=== PATIENT | female | born 1960 | race Caucasian/White ===

== ENCOUNTER 2016-06-24 16:30 | Emergency (ER) | payer MEDICAID ==
[~2016-06-24] VITALS: Ht 167.6 cm; Wt 63.5 kg
[2016-06-24 17:24] LABS: BASOPHILS % (AUTO) 0.2 % (0.0-2.0); DIFF TOTAL % 100 %; EOSINOPHILS % (AUTO) 0.1 % (0.0-6.0); HEMATOCRIT 37 % (33-45); HEMOGLOBIN 12.6 g/dL (11.5-14.8); LYMPHOCYTES # (AUTO) 1.3 /CMM (0.8-4.8); LYMPHOCYTES % (AUTO) 13.4 % (20.0-44.0); MEAN CORPUSCULAR HEMOGLOBIN 30 PG (26.0-33.0); MEAN CORPUSCULAR HGB CONC 34 g/dl (31.0-36.0); MEAN CORPUSCULAR VOLUME 88 fL (82-100); MONOCYTES # (AUTO) 0.7 /CMM (0.1-1.30); MONOCYTES % (AUTO) 7.1 % (2.0-12.0); NEUTROPHILS # (AUTO) 7.4 /CMM (1.8-8.9); NEUTROPHILS % (AUTO) 79.2 % (43.0-81.0); PLATELET COUNT (AUTO) 284 /CMM (150-450); RED BLOOD CELL COUNT(AUTO) 4.24 MIL/uL (4.0-5.2); WHITE BLOOD COUNT (AUTO) 9.4 K/uL (4.3-11.0)
[2016-06-24] MEDS ORDERED: HALO10TA13 PO (17:34)
[2016-06-24] MEDS ORDERED: LAMO150T33 PO (17:34)
[2016-06-24] MEDS ORDERED: BENZ1TAB7 PO (17:34)
[2016-06-24] MEDS ORDERED: OLAN10TA3 PO (17:34)
[2016-06-24] MEDS ORDERED: DIVA500T2 PO (17:34)
[2016-06-24 17:36] LABS: INR 1.04 (0.87-1.13); PROTHROMBIN TIME 10.9 SECS (9.5-12.7)
[2016-06-24 17:37] LABS: ALANINE AMINOTRANSFERASE 12 U/L (12-78); ALBUMIN 3.2 g/dL (3.4-5.0); ANION GAP 13 (5-14); ASPARTATE AMINOTRANSFERASE 16 U/L (15-37); BILIRUBIN,TOTAL 0.1 mg/dL (0.2-1.0); CALCIUM, SERUM 8.7 mg/dL (8.5-10.1); CARBON DIOXIDE 26 mmol/L (21-32); CHLORIDE 107 mmol/L (98-107); CREATININE 0.8 mg/dL (0.6-1.3); GFR 74 mL/min (>60); GLUCOSE 114 mg/dL (74-106); SODIUM SERUM 142 mmol/L (136-145); TOTAL PROTEIN, SERUM 6.7 g/dL (6.4-8.2); UREA NITROGEN, BLOOD 19 mg/dL (7-18)
[2016-06-24 17:42] LABS: ACETAMINOPHEN 0 ug/ml (10-30); INDIRECT BILIRUBIN 0.1 mg/dL (0.0-1.1); SALICYLATE 1.3 mg/dL (2.8-20.0)
[2016-06-24 19:12] LABS: KETONES,URINE Trace (NEGATIVE); LEUKOCYTE ESTERASE ,URINE Small (NEGATIVE); PH,URINE 5.5 (5.0-8.0)
[2016-06-24 19:16] LABS: ADD UA MICROSCOPIC YES
[2016-06-24 19:17] LABS: CANNABINOID, URINE NEGATIVE (NEGATIVE); PHENCYCLIDINE SCREEN,URINE NEGATIVE (NEGATIVE)
[2016-06-24] MEDS ORDERED: OLANZAPINE 5 MG TABLET ONE (19:17)
[2016-06-24 19:29] LABS: ADD URINE CULTURE YES; WBC,URINE TOO NUMEROUS TO COUN /HPF (0-3)
[2016-06-24] MEDS ORDERED: OLANZAPINE 5 MG TABLET PO ONE (19:30)
[2016-06-24] MEDS ORDERED: HALOPERIDOL LACTATE INJ 5 MG/ML VIAL ONE (20:29)
[2016-06-24] MEDS ORDERED: HALOPERIDOL LACTATE INJ 5 MG/ML VIAL IM ONE (21:00)
[2016-06-24 21:22] VITALS: BP 132/87
== END 2016-06-24 21:22 | disposition home or self-care (01) ==
LOC: ER 16:31
DX: F29 Unspecified psychosis not due to a substance or known physiological condition (principal); Z88.0 Allergy status to penicillin; Z88.1 Allergy status to other antibiotic agents; Z88.8 Allergy status to other drugs, medicaments and biological substances; R79.1 Abnormal coagulation profile; R82.79 Other abnormal findings on microbiological examination of urine
CPT/HCPCS: 36415; 80048-TC; 80076-TC; 80305; 81000-TC; 85025-TC; 85730-TC; 87086-TC; A4606; G6038-TC; G6039-TC; G6040-TC; J1630; Z7610

== ENCOUNTER 2016-06-29 15:14 | Emergency (ER) | payer MEDICAID ==
[~2016-06-29] VITALS: Ht 160 cm; Wt 72.6 kg
[~2016-06-29 15:14] MED LIST: BENZ1TAB7 PO; DIVA500T2 PO; HALO10TA13 PO; LAMO150T33 PO; OLAN10TA3 PO
[2016-06-29] MEDS ORDERED: OLANZAPINE 10 MG VIAL IM ONE ×2 (15:49→16:00)
[2016-06-29] MEDS ORDERED: LORAZEPAM INJ 2 MG/ML VIAL ONE ×2 (16:05→16:29)
[2016-06-29] MEDS ORDERED: LORAZEPAM INJ 2 MG/ML VIAL IV STA (16:19)
[2016-06-29] MEDS ORDERED: LORAZEPAM INJ 2 MG/ML VIAL IM ONE ×2 (16:30)
[2016-06-29 19:19] VITALS: BP 140/80
== END 2016-06-29 19:20 | disposition home or self-care (01) ==
LOC: ER 15:18
DX: S09.90XA Unspecified injury of head, initial encounter (principal); R51 Headache; Z88.0 Allergy status to penicillin; Z88.8 Allergy status to other drugs, medicaments and biological substances; W01.198A Fall on same level from slipping, tripping and stumbling with subsequent striking against other object, initial encounter; Y93.89 Activity, other specified; Y92.89 Other specified places as the place of occurrence of the external cause; Y99.9 Unspecified external cause status
CPT/HCPCS: 70450; 96372 ×2; 96374; 99284; A4606; J2060 ×2; J3490; Z7610